=== PATIENT | female | born 1945 | race Hispanic/Latino ===

== ENCOUNTER → 2018-03-07 | Outpatient (CLI) | payer OTHER | END | disposition home or self-care (01) | LOC: RAH 08:51 | PROVIDERS: ATTEND Internal Medicine | DX: Z12.31 Encounter for screening mammogram for malignant neoplasm of breast (principal) | CPT/HCPCS: 77067 ==

== ENCOUNTER → 2018-03-20 | Outpatient (CLI) | payer OTHER | END | disposition home or self-care (01) | LOC: RAH 12:46 | PROVIDERS: ATTEND Internal Medicine | DX: R92.8 Other abnormal and inconclusive findings on diagnostic imaging of breast (principal); N63.11 Unspecified lump in the right breast, upper outer quadrant | CPT/HCPCS: 76641; 77065 ==

== ENCOUNTER 2018-12-06 14:58 | Emergency (ER) | payer OTHER ==
[2018-12-06] MEDS ORDERED: AMOXICILLIN/POTASSIUM CLAV 875-125 TABLET PO ONE (15:59)
[2018-12-06] MEDS ORDERED: TETANUS/DIPHTHERIA TOXOID [ADULT] 0.5 ML VIAL IM ONE (16:00)
== END 2018-12-06 16:44 | disposition home or self-care (01) ==
LOC: EDH 14:58
DX: S60.571A Other superficial bite of hand of right hand, initial encounter (principal); I10 Essential (primary) hypertension; E78.5 Hyperlipidemia, unspecified; W55.01XA Bitten by cat, initial encounter; Y93.89 Activity, other specified; Y92.009 Unspecified place in unspecified non-institutional (private) residence as the place of occurrence of the external cause; Y99.8 Other external cause status
CPT/HCPCS: 73130; 90471; 90714

== ENCOUNTER → 2019-10-01 | Outpatient (CLI) | payer OTHER ==
[~2019-10-01] MED LIST: ROSU10TA28 PO; TELM80TA10 PO
== END | disposition home or self-care (01) ==
LOC: OIH 09:01
PROVIDERS: ATTEND Internal Medicine
DX: I70.0 Atherosclerosis of aorta (principal); I10 Essential (primary) hypertension
CPT/HCPCS: 71046

== ENCOUNTER → 2019-10-19 | Outpatient (CLI) | payer OTHER | END | disposition home or self-care (01) | LOC: RAH 12:16 | PROVIDERS: ATTEND Internal Medicine | DX: Z12.31 Encounter for screening mammogram for malignant neoplasm of breast (principal) | CPT/HCPCS: 77067 ==